=== PATIENT | male | born 2000 | race Caucasian/White ===

== ENCOUNTER 2019-07-16 12:34 | Emergency (ER) | payer SELFPAY ==
[2019-07-16 12:37] VITALS: BP 139/76; PULSE 78; RESP 11; TEMP 36.6; O2SAT 99
[2019-07-16 12:46] VITALS: O2SAT 98
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
[2019-07-16] MEDS: ONDANSETRON INJ 4 MG/2 ML VIAL IV PUSH (13:25)
[2019-07-16] MEDS: MECLIZINE HCL 25 MG TABLET PO (13:25)
[2019-07-16 13:28] VITALS: BP 159/88; PULSE 65; RESP 15; TEMP 36.6; O2SAT 98
[2019-07-16 14:48] VITALS: BP 136/72; PULSE 72; RESP 16; O2SAT 98
== END 2019-07-16 14:46 | disposition home or self-care (01) ==
PROVIDERS: Emergency Provider Emergency Medicine; PCP Family Medicine Adolescent Medicine
DX: S06.0X0A Concussion without loss of consciousness, initial encounter (principal); W20.8XXA Other cause of strike by thrown, projected or falling object, initial encounter; V48.6XXA Car passenger injured in noncollision transport accident in traffic accident, initial encounter
CPT/HCPCS: 96374; 99284; A9270; J2405

== ENCOUNTER 2019-07-17 13:47 | Emergency (ER) | payer SELFPAY ==
--- NOTE | ~2019-07-17 | CT_ITS ---
EXAMINATION: CT brain wo con EXAM DATE: 07/17/2019 16:40 INDICATION: Head injury. TECHNIQUE: Spiral CT of the head was performed without contrast. Axial, coronal and sagittal images were reviewed. The dose-length product (DLP) for this examination was 605.33 mGy-cm. The exposure w as tailored according to patient size, and iterative reconstruction (ASIR) was used as additional dos e reduction technique. Comparison is made to prior examination from 03/02/2015. FINDINGS: There is no acute intraparenchymal hemorrhage. No evidence of intraparenchymal brain mass lesion. No evidence of acute infarction. There is no mass effect or midline shift. The ventricles are normal in size. There are no extra-axial collections. There are no acute calvarial fractures. T he orbits are unremarkable. Soft tissue is unremarkable. The visualized sinuses and mastoid air yuki ls are well aerated. IMPRESSION: 1. No acute intracranial findings. Reviewed, dictated and finalized at location A. [employer] MA[employer]GER
[2019-07-17 15:23] VITALS: BP 141/75; PULSE 81; RESP 18; TEMP 37.4; O2SAT 100
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
== END 2019-07-17 17:47 | disposition home or self-care (01) ==
PROVIDERS: Emergency Provider Emergency Medicine; PCP Family Medicine Adolescent Medicine
DX: S09.90XA Unspecified injury of head, initial encounter (principal); W22.8XXA Striking against or struck by other objects, initial encounter
CPT/HCPCS: 70450; 99284

== ENCOUNTER 2019-12-19 15:55 | Emergency (ER) | payer SELFPAY ==
[2019-12-19 16:15] VITALS: BP 120/66; PULSE 64; RESP 18; TEMP 36.3; O2SAT 100
[2019-12-19] MEDS: TETANUS,DIPHTHERIA,AC PERTUSSIS ADULT (0.5 ML) BOOSTRIX IM (16:33)
--- NOTE | 2019-12-19 16:41 | ED.GENADULT ---
HPI - General Adult General Chief complaint: Extremity Injury, Upper Stated complaint: Fell right thumb injury Time Seen by Provider: 12/19/19 16:41 Source: patient Mode of arrival: ambulatory Limitations: no limitations History of Present Illness HPI narrative: 19 year old male patient presents to the [facility] with request for tetanus shot. Patient states about 3 days ago he fell onto a neisha nail and scraped his the skin on his right thumb. Patient states he is unaware of when his last tetanus shot was but was told that he might need one. Patient states he has been cleaning the area with alcohol and covering it with a Band-Aid. Denies any fevers, body aches or chills. Denies any decreased range of motion to the thumb. Related Data Home Medications Medication Instructions Recorded Confirmed No Home Medications 12/19/19 12/19/19 Allergies Allergy/AdvReac Type Severity Reaction Status Date / Time No Known Allergies Allergy Verified 12/19/19 16:26 Review of Systems Review of Systems: Narrative: CONSTITUTIONAL: Denies fever, chills, or sweats. EYES: Denies visual changes, redness, or discharge. ENT: Denies rhinorrhea, congestion, sore throat, or otalgia. CARDIOVASCULAR: Denies chest pain, palpitations, or edema. RESPIRATORY: Denies cough or dyspnea. GASTROINTESTINAL: Denies abdominal pain, nausea, vomiting, or diarrhea. GENITOURINARY: Denies dysuria or hematuria. SKIN: Denies rash or itching. Positive injury to right thumb x3 days MUSCULOSKELETAL: Denies back pain, joint pain, or myalgia. NEUROLOGIC: Denies headache, numbness, or weakness. PSYCHIATRIC: Denies anxiety or depression. [facility] Past Medical History Medical History Right arm fracture RSV (acute bronchiolitis due to respiratory syncytial virus) Surgical History Surgical History No history of previous surgery Social History Social History Smoking status: Smoker, status unknown Gender identity (if verbalized by the patient): Male Comments At the time of my signature I agree with nursing past medical history, surgical, social, and family history. There is no relevant family history pertinent to the presenting complaint. Exam Narrative: Exam Narrative: GENERAL: Well-appearing, well-nourished, and in no acute distress. HEAD: Normocephalic, atraumatic. EYES: PERRLA and EOMI. ENT: Nares clear, no rhinorrhea or epistaxis. Mucous membranes moist. NECK: Supple. No lymphadenopathy CHEST: Clear to auscultation. No respiratory distress. HEART: Regular rate and rhythm. No murmur heard. Normal peripheral pulses. ABDOMEN: Soft, nontender, nondistended, normal active bowel sounds. EXTREMITIES: Normal range of motion. No edema. SKIN: Warm, dry, no rash. Patient has superficial abrasion noted at the base of the right thumb on the palm side. There is no active bleeding. There is a little avulsion skin noted over the injury. No surrounding erythema or warmth. NEURO: No focal deficits. Alert and oriented x3. Course Vital Signs Vital signs: Vital Signs Temperature 36.3 C L 12/19/19 16:15 Pulse Rate 64 12/19/19 16:15 Respiratory Rate 18 12/19/19 16:15 Blood Pressure 120/66 12/19/19 16:15 Pulse Oximetry 100 12/19/19 16:15 Temperature 36.3 C L 12/19/19 16:15 Pulse Rate 64 12/19/19 16:15 Respiratory Rate 18 12/19/19 16:15 Blood Pressure 120/66 12/19/19 16:15 Pulse Oximetry 100 12/19/19 16:15 Vital signs reviewed. Medical Decision Making Differential Diagnosis Differential Diagnosis: Differential diagnosis: Paronychia, felon, cellulitis, flexor tenosynovitis, mallet finger, boutonniere deformity, flexor tendons, dislocated digits, unstable fracture, unstable ligamentous injury, closed space infection, carpal tunnel syndrome, contusion. Discussed with patient
== END 2019-12-19 16:52 | disposition home or self-care (01) ==
PROVIDERS: Emergency Provider Nurse Practitioner Family; PCP Family Medicine Adolescent Medicine
DX: S60.311A Abrasion of right thumb, initial encounter (principal); W45.0XXA Nail entering through skin, initial encounter; Z23 Encounter for immunization
CPT/HCPCS: 90471; 90715; 99212; G0463

== ENCOUNTER 2021-10-30 12:42 | Emergency (ER) | payer OTHER, SELFPAY ==
--- NOTE | ~2021-10-30 | XR_ITS ---
XR ankle LT min 3V DATE: 10/30/2021 13:26 INDICATION: Left ankle injury, pain TECHNIQUE: 4 views of left ankle COMPARISON: 06/08/2014 FINDINGS: Mild anteromedial ankle soft tissue swelling Apparently chronic ossicle subjacent to the me dial malleolus. No recent fracture or dislocation of the ankle or disruption of the ankle mortise is detected. IMPRESSION: Mild anteromedial soft tissue swelling. No recent fracture or dislocation is detected Reviewed, dictated and finalized at location A. IMPRESSION: Mild anteromedial soft tissue swelling. No recent fracture or dislo cation is detected
[2021-10-30 12:52] VITALS: BP 139/73; PULSE 71; RESP 16; TEMP 36.9; O2SAT 99
--- NOTE | 2021-10-30 12:57 | ED.LOWEXIN ---
HPI - Extremity Injury (Lower) General Chief Complaint: Extremity Injury, Lower Stated Complaint: left leg pain Time Seen by Provider: 10/30/21 12:58 Source: patient Mode of arrival: ambulatory Limitations: no limitations History of Present Illness HPI Narrative: 21-year-old male presented for complaint of left ankle pain and mild swelling after injury 3 days ago. He states that piece of wall fell, slid down the left childress and landed on the left ankle. Since then he has pain with ambulation or any pressure. Pain at rest is 1 out of 10, pain with ambulation is about an 8 out of 10. He has taken 1 ibuprofen for pain. Denies numbness, tingling, weakness to his toes. Related Data Home Medications Medication Instructions Recorded Confirmed No Home Medications 12/19/19 12/19/19 Allergies Allergy/AdvReac Type Severity Reaction Status Date / Time No Known Allergies Allergy Verified 12/19/19 16:26 Review of Systems Review of Systems: CONSTITUTIONAL: Denies body aches, fever, chills CARDIOVASCULAR: Denies chest pain, palpitations, or edema. RESPIRATORY: Denies cough or dyspnea. SKIN: Denies rash, itching, or wounds. MUSCULOSKELETAL: Left ankle pain NEUROLOGIC: Denies numbness, tingling, or weakness. All systems reviewed & are unremarkable except as noted in HPI and below PMFSH Past Medical History Medical History (Updated 10/30/21 @ 14:05 by Veronica Santiago APRN) Right arm fracture RSV (acute bronchiolitis due to respiratory syncytial virus) Surgical History Surgical History No history of previous surgery Social History Social History Smoking status: Smoker, status unknown Gender identity (if verbalized by the patient): Male Comments At time of signature, I have reviewed and agree with nursing past medical, surgical, social and family history unless otherwise noted. Please see nursing chart for further information. There is no relevant family history pertinent to the presenting complaint Exam Narrative: GENERAL: Well-appearing, well-nourished, and in no acute distress. CHEST: Speaks in full sentences. No respiratory distress. HEART: Regular rate and rhythm. Normal and equal peripheral pulses. EXTREMITIES: limited range of motion to left ankle ankle, Mild swelling and ecchymosis tender with palpation over anterior ankle. left foot has normal strength and sensation, No open wounds, skin tenting, or obvious deformity; pulse palpable and equal bilaterally, skin warm, dry, pink. Capillary refill less than 3 seconds. SKIN: Warm, dry, no rash. left anterior childress with superficial abrasion from mid childress to anterior ankle no active drainage NEURO: Alert and oriented x3. PSYCH: Normal mood and affect Course Course Emergency Course: Patient is aware of diagnosis, understands and agrees to treatment plan. Anticipatory guidance given. Patient agrees to follow-up as directed and is aware of reasons to seek care at the emergency department. Portions of this record may have been created with voice recognition software Level of Care: Express Care Visit Vital Signs Vital signs: Vital Signs Temperature 98.5 F 10/30/21 12:52 Pulse Rate 71 10/30/21 12:52 Respiratory Rate 16 10/30/21 12:52 Blood Pressure 139/73 10/30/21 12:52 Pulse Oximetry 99 10/30/21 12:52 Oxygen Delivery Room Air 10/30/21 12:52 Temperature 98.5 F 10/30/21 12:52 Pulse Rate 71 10/30/21 12:52 Respiratory Rate 16 10/30/21 12:52 Blood Pressure 139/73 10/30/21 12:52 Pulse Oximetry 99 10/30/21 12:52 Oxygen Delivery Room Air 10/30/21 12:52 Reviewed Procedures Other Procedure Procedure 1: Other Procedure: ambrose wrap applied per RN to left ankle MDM - Extremity Injury (Lower) MDM Narrative Medical decision making narrative: xray left ankle showed mild soft tissue swelling ov
== END 2021-10-30 14:14 | disposition home or self-care (01) ==
PROVIDERS: Emergency Provider Nurse Practitioner Family; PCP Family Medicine Adolescent Medicine
DX: S99.912A Unspecified injury of left ankle, initial encounter (principal); W20.8XXA Other cause of strike by thrown, projected or falling object, initial encounter
CPT/HCPCS: 73610; 99213; G0463

== ENCOUNTER 2022-05-24 10:15 | Emergency (ER) | payer OTHER, SELFPAY ==
[2022-05-24 10:22] VITALS: BP 123/66; PULSE 65; RESP 12; TEMP 36.7; O2SAT 100
--- NOTE | 2022-05-24 11:08 | PC.NURSE ---
Patient states yesterday he stepped on a nail and is having pain and swelling to the bottom of his left foot. Patient is UTD with tetanus and states his last one was 2 years ago. No active bleeding or open wound noted.
--- NOTE | 2022-05-24 11:15 | ED.WOUNDLAC ---
HPI - Wound/Laceration General Chief Complaint: Wound/Laceration Stated Complaint: PUNCTURE WOUND L FOOT Time Seen by Provider: 05/24/22 10:20 History of Present Illness HPI narrative: 22-year-old male presents to the emergency room for evaluation of left foot pain. States yesterday he stepped on a nail that punctured his boot. States today's experiencing some swelling and pain when he ambulates. Related Data Allergies Allergy/AdvReac Type Severity Reaction Status Date / Time No Known Allergies Allergy Verified 01/13/22 11:05 Review of Systems Review of Systems: CONSTITUTIONAL: Denies fever, chills, or sweats. EYES: Denies visual changes, redness, or discharge. ENT: Denies rhinorrhea, congestion, sore throat, or otalgia. CARDIOVASCULAR: Denies chest pain, palpitations, or edema. RESPIRATORY: Denies cough or dyspnea. GASTROINTESTINAL: Denies abdominal pain, nausea, vomiting, or diarrhea. GENITOURINARY: Denies dysuria or hematuria. SKIN: Denies rash or itching. MUSCULOSKELETAL: Denies back pain, joint pain, or myalgia. NEUROLOGIC: Denies headache, numbness, dizziness, or weakness. PSYCHIATRIC: Denies anxiety or depression. PMFSH Past Medical History Medical History Right arm fracture RSV (acute bronchiolitis due to respiratory syncytial virus) Surgical History Surgical History No history of previous surgery Family History Family History Grandparent Lung cancer Breast cancer Leukemia Mother Fibromyalgia Rheumatoid arthritis Depression Social History Social History Smoking status: Current every day smoker Tobacco type: e-cigarettes/vaping Second hand tobacco smoke exposure: No Alcohol intake: current Drinks per week: 2 Substance use: current Substance use type: marijuana Gender identity (if verbalized by the patient): Male Sexual Orientation (if Verbalized by the Patient): Straight or Heterosexual Spiritual care concerns: No Agree to blood products: Yes Exam Narrative: GENERAL: Well-appearing, well-nourished, no physical limitations, and in no acute distress. HEAD: Normocephalic, atraumatic. EYES: Conjunctivae normal, PERRLA and EOMI. CHEST: Clear to auscultation. No respiratory distress. No wheezes rales or rhonchi. HEART: Regular rate and rhythm. No murmur heard. Normal peripheral pulses. EXTREMITIES: left foot: puncture wound with no surrounding STS to plantar surface, no lymphangitic spread SKIN: Warm, dry, no rash. No noted wounds NEURO: No focal deficits. Alert and oriented x3. MAEW. CN's II-XI intact bilaterally, normal gait PSYCH: Cooperative. Normal mood and affect. Course Vital Signs Vital signs: Vital Signs Temperature 36.7 C 05/24/22 10:22 Pulse Rate 65 05/24/22 10:22 Respiratory Rate 12 05/24/22 10:22 Blood Pressure 123/66 05/24/22 10:22 Pulse Oximetry 100 05/24/22 10:22 Temperature 36.7 C 05/24/22 10:22 Pulse Rate 65 05/24/22 10:22 Respiratory Rate 12 05/24/22 10:22 Blood Pressure 123/66 05/24/22 10:22 Pulse Oximetry 100 05/24/22 10:22 Discharge Plan Discharge Clinical Impression: Puncture wound of plantar aspect of left foot Patient Disposition: Home, Self-Care Condition: Stable Instructions: Antibiotic Form, Puncture Wound (DC) Prescriptions: New ciprofloxacin HCl 500 mg tablet 500 mg PO Q12H 10 Days Qty: 20 0RF No Action prednisone 10 mg tablet See Rx Instructions PO DAILY Qty: 52 0RF Rx Instructions: Take 6 daily x4, 4 daily x4, 2 daily x4, 1 daily x4 orally daily; Follow-up/Referrals: Moises Lechuga MD [Primary Care Provider] - Time of Disposition: 11:15
== END 2022-05-24 11:29 | disposition home or self-care (01) ==
LOC: ANHED 11:22
PROVIDERS: Emergency Provider Nurse Practitioner Family; PCP Family Medicine Adolescent Medicine
DX: S91.332A Puncture wound without foreign body, left foot, initial encounter (principal); Z23 Encounter for immunization; W45.0XXA Nail entering through skin, initial encounter
CPT/HCPCS: 90471; 99283

== ENCOUNTER 2023-01-18 14:39 | Emergency (ER) | payer OTHER, SELFPAY ==
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
[2023-01-18 14:50] VITALS: BP 125/76; PULSE 70; RESP 16; TEMP 37; O2SAT 99
== END 2023-01-18 15:41 | disposition home or self-care (01) ==
PROVIDERS: Emergency Provider Nurse Practitioner Family; PCP Family Medicine Adolescent Medicine
DX: S05.02XA Injury of conjunctiva and corneal abrasion without foreign body, left eye, initial encounter (principal); F17.290 Nicotine dependence, other tobacco product, uncomplicated
CPT/HCPCS: 99213; A9270; G0463